=== PATIENT | female | born 1960 | race Two or more races ===

== ENCOUNTER 2025-01-26 08:27 | Outpatient (CLI) | payer OTHER | END 2025-01-26 08:29 | disposition home or self-care (01) | LOC: SONOGRAMA 08:27 | PROVIDERS: ATTEND Pathology Anatomic Pathology & Clinical Pathology | DX: D34 Benign neoplasm of thyroid gland (principal); R59.0 Localized enlarged lymph nodes; C73 Malignant neoplasm of thyroid gland ==